=== PATIENT | female | born 1940 | race Caucasian/White ===

== ENCOUNTER → 2021-07-05 | Outpatient (CLI) | payer MEDICARE, BC ==
[~2021-07-05] MED LIST: ANASTROZOLE1 MG PO; ASPIRIN E.C. 8181 MG PO; BENAZEPRIL HCT1 TAB PO; LISINOPRIL20 MG PO; MACROBID 100 M100 MG PO; OMNICEF 300MG300 MG PO; PHENAZOPYRIDIN200 MG PO; PYRIDIUM200 M2 PO; TOPCARE ASPIRIN81 M1 PO; ZOCOR 20MG20 MG PO
== END ==
LOC: MAMMO 14:30
DX: M85.80 Other specified disorders of bone density and structure, unspecified site (principal)

== ENCOUNTER → 2024-03-24 | Outpatient (CLI) | payer MEDICARE, BC ==
[2024-03-24 10:32] LABS: ALBUMIN 4.1 g/dL (3.4-4.8)
[2024-03-24 10:33] LABS: CALCIUM 9.9 mg/dL (8.3-10.5)
[2024-03-24 10:35] LABS: TOTAL PROTEIN 6.4 g/dL (6.2-8.1)
[2024-03-24 10:36] LABS: TOTAL BILIRUBIN 0.3 mg/dL (0.2-1.2)
== END ==
LOC: LAB 10:12
PROVIDERS: Internal Medicine
DX: C50.412 Malignant neoplasm of upper-outer quadrant of left female breast (principal)